=== PATIENT | female | born 1995 | race Caucasian/White ===

== ENCOUNTER → 2017-12-21 | Outpatient (CLI) | payer BC ==
[2017-12-21 11:35] LABS: ALBUMIN 4.1 GM/DL (3.2-5.2); ALBUMIN/GLOBULIN RATIO 1.21 (1.00-1.93); ALKALINE PHOSPHATASE 84 U/L (45-117); ALT/SGPT 18 U/L (12-78); ANION GAP 7 MEQ/L (8-16); AST/SGOT 15 U/L (7-37); BILIRUBIN,TOTAL 0.4 MG/DL (0.2-1.0); BLOOD UREA NITROGEN 14 MG/DL (7-18); CARBON DIOXIDE LEVEL 30 MEQ/L (21-32); CHLORIDE LEVEL 105 MEQ/L (98-107); GLOMERULAR FILTRATION RATE > 60.0 (>60); GLUCOSE, FASTING 78 MG/DL (70-100); POTASSIUM SERUM 4.2 MEQ/L (3.5-5.1); SODIUM LEVEL 142 MEQ/L (136-145); TOTAL PROTEIN 7.5 GM/DL (6.4-8.2)
== END ==
LOC: M WUC 09:05
DX: F34.1 Dysthymic disorder (principal)
CPT/HCPCS: 80053

== ENCOUNTER → 2018-05-25 | Outpatient (CLI) | payer BC ==
[2018-05-25 17:27] LABS: ANION GAP 7 MEQ/L (8-16); BLOOD UREA NITROGEN 7 MG/DL (7-18); CALCIUM LEVEL 8.7 MG/DL (8.5-10.1); CARBON DIOXIDE LEVEL 27 MEQ/L (21-32); CHLORIDE LEVEL 107 MEQ/L (98-107); CREATININE FOR GFR 0.73 MG/DL (0.55-1.30); GLOMERULAR FILTRATION RATE > 60.0 (>60); GLUCOSE, FASTING 102 MG/DL (70-100); POTASSIUM SERUM 4.4 MEQ/L (3.5-5.1); SODIUM LEVEL 141 MEQ/L (136-145)
== END ==
LOC: M WUC 13:22
DX: F34.1 Dysthymic disorder (principal)
CPT/HCPCS: 80048

== ENCOUNTER → 2018-08-18 | Outpatient (CLI) | payer BC | LOC: M WUC 11:08 | DX: M79.672 Pain in left foot (principal) | CPT/HCPCS: 73630 ==

== ENCOUNTER 2018-12-02 22:04 | Emergency (ER) | payer BC ==
[~2018-12-02] VITALS: Ht 165.1 cm; Wt 77.3 kg
[2018-12-03] MEDS ORDERED: DICL75TA PO (00:22)
[2018-12-03] MEDS ORDERED: KETOROLAC TROMETHAMINE 10 MG TAB PO ONE (00:30)
[2018-12-03] MEDS ORDERED: CLAR10CA3 PO (00:53)
[2018-12-03] MEDS ORDERED: EFFE75CA2 OR (00:53)
[2018-12-03 00:59] VITALS: BP 131/84
--- NOTE | 2018-12-03 12:00 | REP ---
LEFT KNEE, COMPLETE: 12/02/2018. COMPARISON: 07/11/2008 CLINICAL HISTORY: Injury, left knee pain. FINDINGS: Five views provided. Patella on sunrise view shows no subluxation or dislocation. Small joint effusion is suspected in the suprapatellar bursa. Medial and lateral compartments show no narrowing, loose body, osteochondral defect, fracture, or avulsion. Proximal tibia and fibula show normal articulation. No degenerative spurs or joint space narrowing. IMPRESSION: 1. Suprapatellar joint effusion is suspected without fracture, loose body, osteochondral defect, avulsion, focal bone lesion, or other acute finding. Electronically Signed by Nakul Willingham MD 12/03/2018 01:43 P
== END 2018-12-03 01:01 | disposition home or self-care (01) ==
LOC: M ED 22:04
DX: S80.02XA Contusion of left knee, initial encounter (principal); W00.0XXA Fall on same level due to ice and snow, initial encounter; Y92.410 Unspecified street and highway as the place of occurrence of the external cause

== ENCOUNTER → 2019-02-23 | Outpatient (REF) | payer BC ==
[~2019-02-23] MED LIST: CLAR10CA3 PO; DICL75TA PO; EFFE75CA2 OR
== END ==
LOC: M SFHCLERA 16:17
PROVIDERS: ATTEND Physician Assistant
DX: N39.0 Urinary tract infection, site not specified (principal)

== ENCOUNTER → 2019-03-28 | Outpatient (REF) | payer BC | LOC: M SFHCLERA 19:43 | PROVIDERS: ATTEND Nurse Practitioner Family | DX: R39.9 Unspecified symptoms and signs involving the genitourinary system (principal) ==

== ENCOUNTER 2019-05-29 17:22 | Emergency (ER) | payer BC, OTHER ==
[~2019-05-29] VITALS: Ht 162.6 cm; Wt 86.4 kg
[2019-05-29] MEDS ORDERED: VENL37.598 PO (17:34)
[2019-05-29] MEDS ORDERED: PRAZ1CAP PO (17:34)
[2019-05-29] MEDS ORDERED: RISP0.5T3 PO (17:34)
[2019-05-29] MEDS ORDERED: MIRE1IUD IU (17:38)
[2019-05-29] MEDS ORDERED: PROAAER10 INH (17:38)
[2019-05-29] MEDS ORDERED: EPIP0.3I2 IM (17:38)
[2019-05-29] MEDS ORDERED: ROBA500T PO (18:08)
[2019-05-29] MEDS ORDERED: KETOROLAC 60 MG/2 ML VIAL (J1885) IM ONE (18:15)
[2019-05-29 18:43] VITALS: BP 140/88
== END 2019-05-29 18:46 | disposition home or self-care (01) ==
LOC: M ED 17:22 → EDBD 17:22 → M ED 18:46
DX: S16.1XXA Strain of muscle, fascia and tendon at neck level, initial encounter (principal); S39.012A Strain of muscle, fascia and tendon of lower back, initial encounter; V49.49XA Driver injured in collision with other motor vehicles in traffic accident, initial encounter; Y92.410 Unspecified street and highway as the place of occurrence of the external cause; J45.909 Unspecified asthma, uncomplicated; Z79.899 Other long term (current) drug therapy; Z97.5 Presence of (intrauterine) contraceptive device; Z88.0 Allergy status to penicillin; Z91.030 Bee allergy status
CPT/HCPCS: 96372; 99284; J1885

== ENCOUNTER → 2019-08-12 | Outpatient (CLI) | payer OTHER, BC ==
[~2019-08-12] MED LIST changes: +EPIP0.3I2 IM; +MIRE1IUD IU; +PRAZ1CAP PO; +PROAAER10 INH; +RISP0.5T3 PO; +ROBA500T PO; +VENL37.598 PO
--- NOTE | 2019-08-13 07:30 | REP ---
CHEST, TWO VIEWS: Two views of the chest were performed. There is mild bibasilar interstitial edema/pneumonitis. No consolidation is seen. The heart is normal in size. The mediastinal silhouette is unremarkable. Visualized osseous structures are intact. IMPRESSION: Mild bibasilar interstitial pneumonitis or edema. Electronically Signed by Dada Cooper MD 08/13/2019 03:36 P
== END ==
LOC: M LRY 15:26
PROVIDERS: ATTEND Nurse Practitioner Family
DX: R91.8 Other nonspecific abnormal finding of lung field (principal)

== ENCOUNTER → 2020-04-28 | Outpatient (CLI) | payer OTHER, BC ==
--- NOTE | 2020-04-28 16:05 | REP ---
LEFT KNEE SERIES: Five views of the left knee are performed. There is irregularity of the cortex of the anterior aspect of the medial femoral condyles suggesting a focal osteochondral fracture. No other acute fracture or dislocation is seen. The joint spaces are unremarkable. IMPRESSION: Possible acute osteochondral fracture, anterior aspect of the medial femoral condyle. Electronically Signed by Dada Cooper MD 04/29/2020 11:22 P
== END ==
LOC: M LRY 12:15
PROVIDERS: ATTEND Physician Assistant
DX: M25.562 Pain in left knee (principal)

== ENCOUNTER 2021-03-22 21:51 | Emergency (ER) | payer BC, OTHER ==
[~2021-03-22] VITALS: Ht 165.1 cm; Wt 117.3 kg
[~2021-03-22 21:51] MED LIST changes: +RISP-7 PO; -RISP0.5T3 PO
[2021-03-22 23:21] LABS: BASO % 0.2 % (0.0-1.0); EOS % 0.2 % (0.0-3.0); HEMATOCRIT 41.3 % (36.0-47.0); HEMOGLOBIN 13.1 g/dl (12.0-15.5); LYMPH # 3.8 10^3/uL (1.5-5.0); MEAN CORPUSCULAR HEMOGLOBIN 27.4 pg (27.0-33.0); MEAN CORPUSCULAR HGB CONC 31.7 g/dl (32.0-36.5); MEAN CORPUSCULAR VOLUME 86.4 fl (80.0-96.0); MONO # 0.6 10^3/uL (0.0-0.8); MONO % 4.8 % (2.0-8.0); NEUTROPHILS # 8.5 10^3/uL (1.5-8.5); NEUTROPHILS % 64.6 % (36.0-66.0); PLATELET COUNT, AUTOMATED 312 10^3/uL (150-450); RED BLOOD COUNT 4.78 10^6/uL (4.00-5.40); WHITE BLOOD COUNT 13.1 10^3/uL (4.0-10.0)
[2021-03-22] MEDS ORDERED: KETOROLAC 30 MG/ML 1ML VIAL IV ONE (23:35)
[2021-03-22] MEDS ORDERED: ONDANSETRON 4MG/2ML VIAL IV ONE (23:35)
[2021-03-22] MEDS ORDERED: ISOVUE-370 76% 100ML VIAL As Ordered ONE (23:39)
[2021-03-22 23:50] LABS: ALBUMIN 3.7 GM/DL (3.2-5.2); ALT/SGPT 53 U/L (12-78); BILIRUBIN,DIRECT 0.1 MG/DL (0.0-0.2); BILIRUBIN,TOTAL 0.5 MG/DL (0.2-1.0); BLOOD UREA NITROGEN 16 MG/DL (7-18); CALCIUM LEVEL 9.5 MG/DL (8.5-10.1); CARBON DIOXIDE LEVEL 25 MEQ/L (21-32); CHLORIDE LEVEL 106 MEQ/L (98-107); CREATININE FOR GFR 0.78 MG/DL (0.55-1.30); GLOMERULAR FILTRATION RATE > 60.0 (>60); GLUCOSE, FASTING 103 MG/DL (70-100); LIPASE 123 U/L (73-393); POTASSIUM SERUM 4.5 MEQ/L (3.5-5.1); SODIUM LEVEL 139 MEQ/L (136-145); TOTAL PROTEIN 7.1 GM/DL (6.4-8.2)
[2021-03-22 23:52] LABS: HCG, SERUM QUALITATIVE NEGATIVE (NEGATIVE)
[2021-03-23] MEDS ORDERED: REGL10TA6 PO (02:49)
[2021-03-23] MEDS ORDERED: ONDA4TAB6 PO (02:49)
[2021-03-23 03:00] VITALS: BP 109/63
[2021-03-23] MEDS ORDERED: METOCLOPRAMIDE INJ 10MG/2ML VIAL (J2765 PER 1) IV ONE (03:00)
--- NOTE | 2021-03-23 08:54 | REP ---
INDICATION: rlq abd pain. COMPARISON: None TECHNIQUE: Standard helical technique after the intravenous administration of 100 cc Isovue 370. No oral bowel preparatory contrast was administered prior to the exam. FINDINGS: Preliminary report was given by [employer] at the time the exam is performed. The lung bases are clear. The liver, gallbladder, spleen, pancreas, adrenal glands, and kidneys are within normal limits. The abdominal aorta and para-regions are within normal limits. The bowel loops and the mesenteries are within normal limits. There is no free fluid or free air. In the left hemipelvis there is an oval-shaped 4 cm sized low-density structure which has slightly higher density than water and is most likely of ovarian origin. There is a T-shaped radiodensity within the uterus consistent with an IUD. The osseous structures are within normal limits. IMPRESSION: Likely left ovarian cyst as described above. This could be confirmed with pelvic ultrasonography if clinically relevant. <Electronically signed by Josue Simental > 03/23/21 [id number]
--- NOTE | 2021-03-24 14:24 | ED PDOC ---
Post-Departure Follow-Up certified letter sent to pt re formal read of ct abd/o - needs fu. obtain pcp [facility] and fax. if no pcp refer to [facility] and fax Erika Hernández MD Mar 24, 2021 14:24
== END 2021-03-23 03:35 | disposition home or self-care (01) ==
LOC: M ED 21:51
DX: A09 Infectious gastroenteritis and colitis, unspecified (principal); J45.909 Unspecified asthma, uncomplicated; Z88.0 Allergy status to penicillin; Z91.030 Bee allergy status
CPT/HCPCS: 74177; 80048; 80076; 81001; 83690; 84703; 85025; 87086; 96374; 96375; 99284; J1885; J2405; J2765; Q9967

== ENCOUNTER → 2021-03-25 | Outpatient (CLI) | payer BC ==
[~2021-03-25] MED LIST changes: +ONDA4TAB6 PO; +REGL10TA6 PO
--- NOTE | 2021-03-26 05:35 | REP ---
INDICATION: RT PELVIC PAIN COMPARISON: None. TECHNIQUE: Transabdominal pelvic ultrasound followed by transvaginal examination for better evaluation of the endometrium and adnexa with color Doppler evaluation of the ovaries. FINDINGS: Bladder is unremarkable and measures 15.6 x 8.5 x 9.8 sent. Normal anteverted uterus measures 8.8 x 4.8 x 6.4 cm. The endometrial complex measures 7 mm thickness. IUD identified in satisfactory position. Right ovary is not visualized. Left ovary measures 4.2 x 2.8 x 3.9 cm (RI 0.40) and includes 3.5 x 2.5 x 3.0 cm cyst. IMPRESSION: 3.5 cm left ovarian cyst. <Electronically signed by Caden Soto > 03/26/21 [id number]
== END ==
LOC: M RAD 14:18
PROVIDERS: ATTEND Physician Assistant
DX: N83.202 Unspecified ovarian cyst, left side (principal)

== ENCOUNTER 2021-04-28 21:35 | Emergency (ER) | payer BC ==
[~2021-04-28] VITALS: Ht 165.1 cm; Wt 115.1 kg
[2021-04-29 01:29] LABS: BASO % 0.2 % (0.0-1.0); EOS % 0.1 % (0.0-3.0); HEMATOCRIT 43.2 % (36.0-47.0); HEMOGLOBIN 13.8 g/dl (12.0-15.5); LYMPH # 3.2 10^3/uL (1.5-5.0); MEAN CORPUSCULAR HEMOGLOBIN 27.7 pg (27.0-33.0); MEAN CORPUSCULAR HGB CONC 31.9 g/dl (32.0-36.5); MEAN CORPUSCULAR VOLUME 86.6 fl (80.0-96.0); MONO # 0.6 10^3/uL (0.0-0.8); MONO % 5.2 % (2.0-8.0); NEUTROPHILS % 64.7 % (36.0-66.0); PLATELET COUNT, AUTOMATED 316 10^3/uL (150-450); RED BLOOD COUNT 4.99 10^6/uL (4.00-5.40); WHITE BLOOD COUNT 10.9 10^3/uL (4.0-10.0)
[2021-04-29 01:36] LABS: URINE PREG TEST NEGATIVE (NEGATIVE)
[2021-04-29 02:00] LABS: ALBUMIN 4.1 GM/DL (3.2-5.2); ALT/SGPT 60 U/L (12-78); BILIRUBIN,DIRECT 0.2 MG/DL (0.0-0.2); BILIRUBIN,TOTAL 0.6 MG/DL (0.2-1.0); BLOOD UREA NITROGEN 15 MG/DL (7-18); CALCIUM LEVEL 8.5 MG/DL (8.5-10.1); CARBON DIOXIDE LEVEL 27 MEQ/L (21-32); CHLORIDE LEVEL 106 MEQ/L (98-107); GLOMERULAR FILTRATION RATE > 60.0 (>60); GLUCOSE, FASTING 82 MG/DL (70-100); LIPASE 123 U/L (73-393); POTASSIUM SERUM 3.8 MEQ/L (3.5-5.1); SODIUM LEVEL 139 MEQ/L (136-145); TOTAL PROTEIN 7.6 GM/DL (6.4-8.2)
[2021-04-29] MEDS ORDERED: KETOROLAC 60MG 2ML VIAL IM ONE (06:15)
--- NOTE | 2021-04-29 09:12 | REP ---
INDICATION: hx of ovarian cysts, R sided pelvic pain COMPARISON: None. TECHNIQUE: Transabdominal pelvic ultrasound followed by transvaginal examination for better evaluation of the endometrium and adnexa with color Doppler evaluation of the ovaries. FINDINGS: Bladder is unremarkable and measures 6.0 x 3.5 x 6.6 cm. Normal anteverted uterus measures 8.5 x 5.1 x 6.3 cm. The endometrial complex measures 11.8 mm thickness. IUD identified in central satisfactory position. Bilateral ovaries are normal in appearance and vascularity without evidence for torsion. Right ovary measures 3.3 x 2.7 x 2.5 cm including 1.8 cm involuting follicle and multiple normal follicles; R I = 0.58. Left ovary measures 2.6 x 1.7 x 2.6 cm; R I = 0.58. No pelvic free fluid. IMPRESSION: 1. Involuting right ovarian dominant follicle. 2. Otherwise normal pelvic ultrasound. IUD identified in satisfactory position. <Electronically signed by Caden Soto > 04/29/21 [id number]
[2021-04-29 09:30] VITALS: BP 109/58
== END 2021-04-29 09:40 | disposition home or self-care (01) ==
LOC: M ED 21:35
DX: N83.291 Other ovarian cyst, right side (principal); J45.909 Unspecified asthma, uncomplicated; Z88.0 Allergy status to penicillin; Z91.030 Bee allergy status; Z79.899 Other long term (current) drug therapy; Z97.5 Presence of (intrauterine) contraceptive device
CPT/HCPCS: 36415; 76830; 76856; 80048; 80076; 81001; 83690; 84703; 85025; 93976; 96372; 99284; J1885

== ENCOUNTER → 2021-08-27 | Outpatient (REF) | payer BC | LOC: M SFHCWAGY 10:04 | PROVIDERS: ATTEND Specialist | DX: Z12.4 Encounter for screening for malignant neoplasm of cervix (principal) | CPT/HCPCS: 87624; G0123 ==

== ENCOUNTER → 2022-04-27 | Outpatient (REF) | payer BC, OTHER ==
[2022-04-27 16:21] LABS: BASO % 0.4 % (0.0-1.0); EOS # 0.3 10^3/uL (0.0-0.5); EOS % 3.2 % (0.0-3.0); HEMATOCRIT 39.2 % (36.0-47.0); HEMOGLOBIN 12.4 g/dl (12.0-15.5); LYMPH # 3.4 10^3/uL (1.5-5.0); LYMPH % 32.8 % (24.0-44.0); MEAN CORPUSCULAR HEMOGLOBIN 28.6 pg (27.0-33.0); MEAN CORPUSCULAR HGB CONC 31.6 g/dl (32.0-36.5); MEAN CORPUSCULAR VOLUME 90.3 fl (80.0-96.0); MONO # 0.5 10^3/uL (0.0-0.8); MONO % 5.1 % (2.0-8.0); NEUTROPHILS # 6.1 10^3/uL (1.5-8.5); NEUTROPHILS % 57.9 % (36.0-66.0); PLATELET COUNT, AUTOMATED 331 10^3/uL (150-450); RED BLOOD COUNT 4.34 10^6/uL (4.00-5.40); WHITE BLOOD COUNT 10.4 10^3/uL (4.0-10.0)
[2022-04-27 19:28] LABS: ALBUMIN 3.9 GM/DL (3.2-5.2); ALT/SGPT 49 U/L (12-78); BILIRUBIN,TOTAL 0.6 MG/DL (0.2-1.0); BLOOD UREA NITROGEN 13 MG/DL (7-18); CALCIUM LEVEL 9.2 MG/DL (8.5-10.1); CARBON DIOXIDE LEVEL 27 MEQ/L (21-32); CHLORIDE LEVEL 105 MEQ/L (98-107); CHOLESTEROL LEVEL 143 MG/DL (<200); CREATININE FOR GFR 0.79 MG/DL (0.55-1.30); GLOMERULAR FILTRATION RATE > 60.0 (>60); GLUCOSE, FASTING 73 MG/DL (70-100); HDL CHOLESTEROL 44 MG/DL (>40); LDL CHOLESTEROL 60 MG/DL (<100); NON-HDL-C 99 MG/DL; POTASSIUM SERUM 4.4 MEQ/L (3.5-5.1); SODIUM LEVEL 137 MEQ/L (136-145); TRIGLYCERIDES LEVEL 194 MG/DL (<150)
[2022-04-27 23:52] LABS: HEMOGLOBIN A1c 5.6 %
[2022-04-28 00:26] LABS: TOTAL 25(OH) VITAMIN D 30.4 NG/ML (30.0-100.0)
== END ==
LOC: M LABWUC 16:05
PROVIDERS: ATTEND Nurse Practitioner Family
DX: Z13.29 Encounter for screening for other suspected endocrine disorder (principal); J45.41 Moderate persistent asthma with (acute) exacerbation; Z13.220 Encounter for screening for lipoid disorders

== ENCOUNTER → 2022-09-24 | Outpatient (CLI) | payer BC ==
[2022-09-24 13:01] LABS: BASO # 0.1 10^3/uL (0.0-0.2); BASO % 0.6 % (0.0-1.0); EOS # 0.4 10^3/uL (0.0-0.5); EOS % 4.3 % (0.0-3.0); HEMOGLOBIN 12.9 g/dl (12.0-15.5); LYMPH # 2.4 10^3/uL (1.5-5.0); LYMPH % 28.4 % (24.0-44.0); MEAN CORPUSCULAR HEMOGLOBIN 27.6 pg (27.0-33.0); MEAN CORPUSCULAR HGB CONC 30.7 g/dl (32.0-36.5); MEAN CORPUSCULAR VOLUME 89.7 fl (80.0-96.0); MONO # 0.4 10^3/uL (0.0-0.8); MONO % 4.1 % (2.0-8.0); NEUTROPHILS # 5.3 10^3/uL (1.5-8.5); NEUTROPHILS % 62.2 % (36.0-66.0); PLATELET COUNT, AUTOMATED 309 10^3/uL (150-450); RED BLOOD COUNT 4.68 10^6/uL (4.00-5.40); WHITE BLOOD COUNT 8.5 10^3/uL (4.0-10.0)
[2022-09-24 13:34] LABS: THYROID STIMULATING HORMONE 1.768 uIU/ML (0.55-4.78)
[2022-09-24 13:35] LABS: ALKALINE PHOSPHATASE 76 U/L (46-116); ALT/SGPT 43 U/L (7.0-40); AST/SGOT 32 U/L (<34); BILIRUBIN,TOTAL 0.5 MG/DL (0.3-1.2); BLOOD UREA NITROGEN 13 MG/DL (9-23); CALCIUM LEVEL 8.9 MG/DL (8.5-10.1); CARBON DIOXIDE LEVEL 23 MMOL/L (20-31); CHLORIDE LEVEL 105 MMOL/L (98-107); CHOLESTEROL LEVEL 184 MG/DL (<200); CHOLESTEROL RISK RATIO 4.06 (<5); CREATININE FOR GFR 0.71 MG/DL (0.55-1.30); GLOMERULAR FILTRATION RATE > 60.0 (>60); GLUCOSE, FASTING 91 MG/DL (60-100); HDL CHOLESTEROL 45.3 MG/DL (>40); LDL CHOLESTEROL 117.5 MG/DL (<100); NON-HDL-C 139 MG/DL; POTASSIUM SERUM 4.5 MMOL/L (3.5-5.1); SODIUM LEVEL 140 MMOL/L (136-145); TOTAL 25(OH) VITAMIN D 54.5 NG/ML (20.0-100.0); TOTAL PROTEIN 6.7 G/DL (5.7-8.2); TRIGLYCERIDES LEVEL 106 MG/DL (<150)
[2022-09-24 14:16] LABS: HEMOGLOBIN A1c 5.4 % (4.0-6.0)
== END ==
LOC: M WUC 09:16
PROVIDERS: ATTEND Nurse Practitioner Family
DX: Z00.01 Encounter for general adult medical examination with abnormal findings (principal); R73.9 Hyperglycemia, unspecified; E78.00 Pure hypercholesterolemia, unspecified; Z68.41 Body mass index [BMI] 40.0-44.9, adult; E55.9 Vitamin D deficiency, unspecified

== ENCOUNTER → 2022-10-04 | Outpatient (REF) | payer OTHER | LOC: M LAB REF 09:26 | PROVIDERS: ATTEND Physician Assistant | DX: J02.9 Acute pharyngitis, unspecified (principal) ==

== ENCOUNTER → 2023-01-24 | Outpatient (CLI) | payer OTHER ==
[2023-01-24 10:18] LABS: HEMOGLOBIN A1c 5.6 % (4.0-6.0)
[2023-01-24 10:28] LABS: BASO % 0.4 % (0.0-1.0); EOS # 0.3 10^3/uL (0.0-0.5); EOS % 3.8 % (0.0-3.0); HEMATOCRIT 39.2 % (36.0-47.0); HEMOGLOBIN 12.3 g/dl (12.0-15.5); LYMPH # 3.1 10^3/uL (1.5-5.0); LYMPH % 34.6 % (24.0-44.0); MEAN CORPUSCULAR HEMOGLOBIN 28.1 pg (27.0-33.0); MEAN CORPUSCULAR HGB CONC 31.4 g/dl (32.0-36.5); MEAN CORPUSCULAR VOLUME 89.5 fl (80.0-96.0); MONO # 0.4 10^3/uL (0.0-0.8); MONO % 4.6 % (2.0-8.0); NEUTROPHILS % 56.4 % (36.0-66.0); PLATELET COUNT, AUTOMATED 322 10^3/uL (150-450); RED BLOOD COUNT 4.38 10^6/uL (4.00-5.40)
[2023-01-24 10:42] LABS: ALBUMIN 3.7 G/DL (3.2-5.2); ALKALINE PHOSPHATASE 86 U/L (46-116); ALT/SGPT 32 U/L (7.0-40); AST/SGOT 25 U/L (<34); BILIRUBIN,TOTAL 0.5 MG/DL (0.3-1.2); BLOOD UREA NITROGEN 16 MG/DL (9-23); CALCIUM LEVEL 8.6 MG/DL (8.5-10.1); CARBON DIOXIDE LEVEL 28 MMOL/L (20-31); CHLORIDE LEVEL 105 MMOL/L (98-107); CHOLESTEROL LEVEL 175 MG/DL (<200); CHOLESTEROL RISK RATIO 3.99 (<5); CREATININE FOR GFR 0.75 MG/DL (0.55-1.30); GLOMERULAR FILTRATION RATE > 60.0 (>60); GLUCOSE, FASTING 82 MG/DL (60-100); HDL CHOLESTEROL 43.8 MG/DL (>40); LDL CHOLESTEROL 83.4 MG/DL (<100); NON-HDL-C 131.2 MG/DL; POTASSIUM SERUM 4.3 MMOL/L (3.5-5.1); SODIUM LEVEL 138 MMOL/L (136-145); THYROID STIMULATING HORMONE 2.555 uIU/ML (0.55-4.78); TOTAL PROTEIN 6.6 G/DL (5.7-8.2); TRIGLYCERIDES LEVEL 239 MG/DL (<150)
[2023-01-24 10:43] LABS: TOTAL 25(OH) VITAMIN D 32.8 NG/ML (20.0-100.0)
== END ==
LOC: M WUC 08:18
PROVIDERS: ATTEND Nurse Practitioner Family
DX: Z00.00 Encounter for general adult medical examination without abnormal findings (principal); Z79.899 Other long term (current) drug therapy; E78.00 Pure hypercholesterolemia, unspecified; Z13.29 Encounter for screening for other suspected endocrine disorder; E55.9 Vitamin D deficiency, unspecified; Z13.1 Encounter for screening for diabetes mellitus

== ENCOUNTER 2023-05-28 19:52 | Emergency (ER) | payer OTHER ==
[~2023-05-28] VITALS: Ht 165.1 cm; Wt 114.0 kg
[2023-05-28 20:41] LABS: HEMATOCRIT 35.7 % (36.0-47.0); HEMOGLOBIN 11.4 g/dl (12.0-15.5); MEAN CORPUSCULAR HEMOGLOBIN 27.6 pg (27.0-33.0); MEAN CORPUSCULAR HGB CONC 31.9 g/dl (32.0-36.5); MEAN CORPUSCULAR VOLUME 86.4 fl (80.0-96.0); PLATELET COUNT, AUTOMATED 354 10^3/uL (150-450); RED BLOOD COUNT 4.13 10^6/uL (4.00-5.40); WHITE BLOOD COUNT 12.9 10^3/uL (4.0-10.0)
[2023-05-28 20:42] LABS: APPEARANCE, URINE CLOUDY (CLEAR); BACTERIA, URINE AUTO NEGATIVE (NEGATIVE); BILIRUBIN, URINE AUTO NEGATIVE (NEGATIVE); BLOOD, URINE BLOOD 2+ (NEGATIVE); COLOR, URINE RED (YELLOW); GLUCOSE, URINE (UA) AUTO NEGATIVE (NEGATIVE); KETONE, URINE AUTO NEGATIVE (NEGATIVE); LEUKOCYTE ESTERASE, URINE AUTO NEGATIVE (NEGATIVE); NITRITE, URINE AUTO NEGATIVE (NEGATIVE); PROTEIN, URINE AUTO 2+ mg/dL (NEGATIVE); RBC, URINE AUTO TNTC /HPF (0-3); SPECIFIC GRAVITY URINE AUTO 1.011 (1.002-1.035); SQUAMOUS EPITHELIAL CELL UR AU 2 /HPF (0-6); UROBILINOGEN, URINE AUTO 0.2 mg/dL (0.0-2.0); WBC, URINE AUTO 6 /HPF (0-3)
[2023-05-28 20:52] LABS: LYMPHOCYTES 31 % (16-44); MONOCYTES 7 % (0-5); NEUTROPHILS 62 % (28-66); PLATELET ESTIMATE NORMAL (NORMAL)
[2023-05-28 21:03] LABS: BLOOD UREA NITROGEN 11 MG/DL (9-23); CALCIUM LEVEL 8.8 MG/DL (8.5-10.1); CARBON DIOXIDE LEVEL 26 MMOL/L (20-31); CHLORIDE LEVEL 107 MMOL/L (98-107); GLOMERULAR FILTRATION RATE > 60.0 (>60); GLUCOSE, FASTING 75 MG/DL (60-100); POTASSIUM SERUM 4.1 MMOL/L (3.5-5.1); SODIUM LEVEL 142 MMOL/L (136-145)
[2023-05-29 00:25] VITALS: BP 146/80; TEMP 97.4; O2SAT 97
[2023-05-29 00:39] LABS: HCG, SERUM QUALITATIVE NEGATIVE (NEGATIVE)
== END 2023-05-29 02:38 | disposition left against medical advice (07) ==
LOC: M ED 19:52
DX: R10.2 Pelvic and perineal pain (principal); Z53.21 Procedure and treatment not carried out due to patient leaving prior to being seen by health care provider

== ENCOUNTER → 2023-06-06 | Outpatient (CLI) | payer OTHER | LOC: M WHC 07:04 | PROVIDERS: ATTEND Nurse Practitioner Family | DX: N93.9 Abnormal uterine and vaginal bleeding, unspecified (principal) ==

== ENCOUNTER 2023-06-20 11:47 | Emergency (ER) | payer OTHER ==
[~2023-06-20] VITALS: Ht 165.1 cm; Wt 115.4 kg
[2023-06-20] MEDS ORDERED: ATOR1TAB19 (12:08)
[2023-06-20 14:45] VITALS: BP 131/82; TEMP 97.4; O2SAT 98
== END 2023-06-20 14:46 | disposition home or self-care (01) ==
LOC: M ED 11:47
DX: S93.402A Sprain of unspecified ligament of left ankle, initial encounter (principal); W17.2XXA Fall into hole, initial encounter; Y92.009 Unspecified place in unspecified non-institutional (private) residence as the place of occurrence of the external cause; Q79.60 Ehlers-Danlos syndrome, unspecified; F32.A Depression, unspecified; F41.9 Anxiety disorder, unspecified; F43.10 Post-traumatic stress disorder, unspecified; Z88.0 Allergy status to penicillin; E66.9 Obesity, unspecified; Z79.899 Other long term (current) drug therapy

== ENCOUNTER → 2023-08-29 | Outpatient (REF) | payer OTHER ==
[~2023-08-29] MED LIST changes: +ATOR1TAB19
[2023-08-29 12:16] LABS: HEMATOCRIT 38.8 % (36.0-47.0); HEMOGLOBIN 11.9 g/dl (12.0-15.5); MEAN CORPUSCULAR HEMOGLOBIN 25.6 pg (27.0-33.0); MEAN CORPUSCULAR HGB CONC 30.7 g/dl (32.0-36.5); MEAN CORPUSCULAR VOLUME 83.4 fl (80.0-96.0); PLATELET COUNT, AUTOMATED 387 10^3/uL (150-450); RED BLOOD COUNT 4.65 10^6/uL (4.00-5.40); WHITE BLOOD COUNT 11.1 10^3/uL (4.0-10.0)
[2023-08-29 12:31] LABS: ALBUMIN 3.6 G/DL (3.2-5.2); ALKALINE PHOSPHATASE 61 U/L (46-116); ALT/SGPT 27 U/L (7.0-40); AST/SGOT 26 U/L (<34); BILIRUBIN,TOTAL 0.4 MG/DL (0.3-1.2); BLOOD UREA NITROGEN 17 MG/DL (9-23); CALCIUM LEVEL 9.1 MG/DL (8.5-10.1); CARBON DIOXIDE LEVEL 25 MMOL/L (20-31); CHLORIDE LEVEL 106 MMOL/L (98-107); CHOLESTEROL LEVEL 138 MG/DL (<200); CHOLESTEROL RISK RATIO 2.94 (<5); CREATININE FOR GFR 0.78 MG/DL (0.55-1.30); GLOMERULAR FILTRATION RATE > 60.0 (>60); GLUCOSE, FASTING 89 MG/DL (60-100); HDL CHOLESTEROL 46.9 MG/DL (>40); LDL CHOLESTEROL 63.5 MG/DL (<100); NON-HDL-C 91.1 MG/DL; POTASSIUM SERUM 4.3 MMOL/L (3.5-5.1); SODIUM LEVEL 141 MMOL/L (136-145); TOTAL PROTEIN 6.9 G/DL (5.7-8.2); TRIGLYCERIDES LEVEL 138 MG/DL (<150)
== END ==
LOC: M LABWUC 11:13
PROVIDERS: ATTEND Registered Nurse
DX: E78.00 Pure hypercholesterolemia, unspecified (principal); E55.9 Vitamin D deficiency, unspecified; Z79.899 Other long term (current) drug therapy

== ENCOUNTER → 2023-11-23 | Outpatient (CLI) | payer OTHER ==
[2023-11-23 18:23] LABS: ALBUMIN 3.7 G/DL (3.2-5.2); ALKALINE PHOSPHATASE 72 U/L (46-116); ALT/SGPT 55 U/L (7.0-40); AST/SGOT 47 U/L (<34); BILIRUBIN,TOTAL 0.5 MG/DL (0.3-1.2); BLOOD UREA NITROGEN 10 MG/DL (9-23); CALCIUM LEVEL 9.2 MG/DL (8.5-10.1); CARBON DIOXIDE LEVEL 24 MMOL/L (20-31); CHLORIDE LEVEL 105 MMOL/L (98-107); CREATININE FOR GFR 0.58 MG/DL (0.55-1.30); GLOMERULAR FILTRATION RATE > 60.0 (>60); GLUCOSE, FASTING 104 MG/DL (60-100); POTASSIUM SERUM 3.7 MMOL/L (3.5-5.1); SODIUM LEVEL 136 MMOL/L (136-145); TOTAL PROTEIN 6.5 G/DL (5.7-8.2)
[2023-11-23 18:25] LABS: THYROID STIMULATING HORMONE 2.499 uIU/ML (0.55-4.78)
[2023-11-23 18:33] LABS: HEMATOCRIT 37.7 % (36.0-47.0); HEMOGLOBIN 11.8 g/dl (12.0-15.5); MEAN CORPUSCULAR HEMOGLOBIN 26.8 pg (27.0-33.0); MEAN CORPUSCULAR HGB CONC 31.3 g/dl (32.0-36.5); MEAN CORPUSCULAR VOLUME 85.7 fl (80.0-96.0); PLATELET COUNT, AUTOMATED 371 10^3/uL (150-450); WHITE BLOOD COUNT 11.2 10^3/uL (4.0-10.0)
[2023-11-23 18:43] LABS: HCG, SERUM QUANTITATIVE 4256.1 MIU/ML (<4.2)
== END ==
LOC: M WUC 11:17
PROVIDERS: ATTEND Physician Assistant
DX: Z33.1 Pregnant state, incidental (principal)

== ENCOUNTER 2024-07-08 18:57 | Outpatient (CLI) | payer OTHER ==
[~2024-07-08] VITALS: Ht 165.1 cm; Wt 12.5 kg
[~2024-07-08 18:57] MED LIST changes: +ONDA-282 PO; -ONDA4TAB6 PO; -RISP-7 PO; +RISP0.5T82 PO
[2024-07-08 19:24] VITALS: BP 134/91
[2024-07-08] MEDS ORDERED: NOXI1TAB PO (19:39)
[2024-07-08] MEDS ORDERED: ASPI81CH33 PO (19:39)
[2024-07-08 19:54] VITALS: BP 117/66
[2024-07-08] MEDS ORDERED: METF10004 PO (20:01)
[2024-07-08] MEDS ORDERED: LANTINJ4 SC (21:25)
== END 2024-07-08 21:05 | disposition home or self-care (01) ==
LOC: M LDO 18:57
PROVIDERS: ATTEND Obstetrics & Gynecology
DX: O47.1 False labor at or after 37 completed weeks of gestation (principal); Z3A.38 38 weeks gestation of pregnancy
CPT/HCPCS: 59025; G0463

== ENCOUNTER 2024-07-20 15:08 | Emergency (ER) | payer OTHER ==
[~2024-07-20] VITALS: Ht 165.1 cm; Wt 115.5 kg
[~2024-07-20 15:08] MED LIST changes: +ASPI81CH33 PO; +LANTINJ4 SC; +METF10004 PO; +NOXI1TAB PO
[2024-07-20] MEDS ORDERED: IBUP-1022 PO (15:17)
[2024-07-20] MEDS ORDERED: PREN1CHW PO (15:17)
[2024-07-20] MEDS ORDERED: ACET500T15 PO (15:17)
[2024-07-20 16:05] LABS: BASO % 0.4 % (0.0-1.0); EOS # 0.2 10^3/uL (0.0-0.5); EOS % 1.7 % (0.0-3.0); HEMATOCRIT 32.5 % (36.0-47.0); HEMOGLOBIN 10.6 g/dl (12.0-15.5); LYMPH # 1.4 10^3/uL (1.5-5.0); LYMPH % 12.4 % (24.0-44.0); MEAN CORPUSCULAR HEMOGLOBIN 28.8 pg (27.0-33.0); MEAN CORPUSCULAR HGB CONC 32.6 g/dl (32.0-36.5); MEAN CORPUSCULAR VOLUME 88.3 fl (80.0-96.0); MONO # 0.7 10^3/uL (0.0-0.8); MONO % 5.8 % (2.0-8.0); NEUTROPHILS # 8.9 10^3/uL (1.5-8.5); NEUTROPHILS % 78.5 % (36.0-66.0); PLATELET COUNT, AUTOMATED 346 10^3/uL (150-450); RED BLOOD COUNT 3.68 10^6/uL (4.00-5.40); WHITE BLOOD COUNT 11.3 10^3/uL (4.0-10.0)
[2024-07-20 16:18] LABS: BLOOD UREA NITROGEN 12 MG/DL (9-23); CALCIUM LEVEL 8.8 MG/DL (8.5-10.1); CARBON DIOXIDE LEVEL 23 MMOL/L (20-31); CHLORIDE LEVEL 111 MMOL/L (98-107); CREATININE FOR GFR 0.63 MG/DL (0.55-1.30); GLOMERULAR FILTRATION RATE > 60.0 (>60); GLUCOSE, FASTING 84 MG/DL (60-100); POTASSIUM SERUM 4.3 MMOL/L (3.5-5.1); SODIUM LEVEL 140 MMOL/L (136-145)
[2024-07-20] MEDS: ACETAMINOPHEN 325 MG TAB PO ONE (16:31)
[2024-07-20] MEDS: DEXTROSE 50% 50ML SYRINGE IV STA (16:31)
[2024-07-20] MEDS ORDERED: LORA-1041 PO (16:59)
[2024-07-20] MEDS ORDERED: D 50CAP3 PO (16:59)
[2024-07-20] MEDS ORDERED: HOME MED LIST COMPLETE! XX SCH (17:00)
[2024-07-20] MEDS ORDERED: ISOVUE-370 76% 100ML VIAL As Ordered ONE (18:46)
[2024-07-20] MEDS ORDERED: DOXY-441 PO (21:45)
[2024-07-20] MEDS ORDERED: CEPH500C PO (21:45)
[2024-07-20 22:18] VITALS: BP 137/76; TEMP 99.1; O2SAT 97
[2024-07-20] MEDS: DOXYCYCLINE HYCLATE 100MG TABLET PO ONE (22:22)
[2024-07-20] MEDS: CEPHALEXIN 500 MG CAP PO ONE (22:22)
== END 2024-07-20 22:26 | disposition home or self-care (01) ==
LOC: M ED 15:08
DX: R50.9 Fever, unspecified (principal); Z88.0 Allergy status to penicillin; Z91.030 Bee allergy status; Z79.1 Long term (current) use of non-steroidal anti-inflammatories (NSAID); Z79.2 Long term (current) use of antibiotics; Z79.810 Long term (current) use of selective estrogen receptor modulators (SERMs)
CPT/HCPCS: 71045; 71260; 74177; 80048; 81001; 83605; 85025; 86850; 86900; 86901; 87040; 87086; 87486; 87581; 87633; 87798; 96374; 99285; Q9967

== ENCOUNTER → 2024-10-12 | Outpatient (CLI) | payer OTHER ==
[~2024-10-12] MED LIST changes: +ACET500T15 PO; +CEPH500C PO; +D 50CAP3 PO; +DOXY-441 PO; +IBUP-1022 PO; +LORA-1041 PO; +PREN1CHW PO
== END ==
LOC: M RAD 13:55
PROVIDERS: ATTEND Physician Assistant
DX: J18.9 Pneumonia, unspecified organism (principal)